=== PATIENT | male | born 1990 | race Caucasian/White ===

== ENCOUNTER 2016-11-03 11:01 | Emergency (ER) | payer OTHER ==
[2016-11-03 11:15] VITALS: TEMP 98.4
--- NOTE | 2016-11-03 11:31 | EDPHY ---
H & P Time Seen by Provider: 11/03/16 11:26 HPI/ROS: CHIEF COMPLAINT: acute left ankle pain HISTORY OF PRESENT ILLNESS: 26-year-old male with prior history of left ankle sprain states that yesterday evening he was carrying a friend and rolled his left ankle. He is unable to bear weight secondary to pain. Denies paresthesia. Denies direct trauma. Denies fall from height. Denies proximal tibia or fibula pain. PHYSICAL EXAM (Prior to examination, patient consented to physical exam, hands were washed and my usual and customary physical exam procedures followed) 1) GENERAL: Well-developed, well-nourished, alert and oriented. Appears to be in no acute distress. 2) HEAD: Normocephalic 3) HEENT: Pupils equal, round, reactive to light bilaterally. 4) LUNGS: Breathing comfortably. 5) MUSCULOSKELETAL: Tender to palpation lateral malleolus. proximal tibia and fibula nontender . Fibular head nontender. 5th MT nontender negative Molina test, compartments soft 6) SKIN: intact no tenting 7) VASCULAR: DP,PT pulses and cap refill present and brisk DIFFERENTIAL DIAGNOSIS: in no particular order including but not limited to fracture, sprain, compartment syndrome Procedure: Crutches indications for crutch use discussed with patient. Patient fitted for crutches by ER staff. Observed ambulating with crutches. I think the patient has the capacity to safely use crutches. Usual and customary crutch walking precautions provided Procedure: Splint A [place] boot splint was applied by ER dental technician apprentice. After application of the splint I returned and re-examined the patient. The splint was adequately immobilizing the joint and distal to the splint the patient's circulation and sensation were intact. Patient shows no signs of compartment syndrome. Was given orthopedic precautions. Smoking Status: Current every day smoker Constitutional: Initial Vital Signs Temperature (C) 36.9 C 11/03/16 11:12 Heart Rate 69 11/03/16 11:12 Respiratory Rate 18 11/03/16 11:12 Blood Pressure 117/83 H 11/03/16 11:12 O2 Sat (%) 96 11/03/16 11:12 O2 Delivery Mode Room Air Allergies/Adverse Reactions: No Known Allergies Allergy (Verified 11/03/16 11:11) Home Medications: Medication Instructions Recorded Ibuprofen [Motrin (*)] 800 mg PO Q6 #15 tab 11/03/16 MDM/Departure - [facility] Imaging Results: Imaging Impressions Ankle X-Ray 11/03/16 11:20 Impression: No evidence of acute left ankle fracture. Images reviewed by myself Imaging: I viewed and interpreted images myself - Depart Disposition: Home, Routine, Self-Care Clinical Impression: Left ankle sprain Qualifiers: Encounter type: initial encounter Involved ligament of ankle: unspecified ligament Qualified Code(s): S93.402A - Sprain of unspecified ligament of left ankle, initial encounter Condition: Good Instructions: Ankle Sprain (ED) Additional Instructions: Return to the ER immediately if you experience discoloration, have worsening pain, numbness, tingling, or any other symptoms that concern you. If you received x-rays in the emergency department today, be advised, that ligamentous , tendon, muscular, and other non-bony injury cannot be fully ruled out. Try to keep your affected extremity elevated above the level of your chest, and keep cold packs on the affected area, for the next 48 hours. Prescriptions: Ibuprofen [Motrin (*)] 800 mg PO Q6 #15 tab Referrals: Catina López MD [Medical Doctor] - 5-7 days, call for appt.
[2016-11-03] MEDS ORDERED: IBUPROFEN 600 MG TAB PO ONE (11:58)
[2016-11-03 12:05] VITALS: BP 117/76; PULSE 80; RESP 14; O2SAT 94
== END 2016-11-03 12:06 | disposition home or self-care (01) ==
DX: S93.402A Sprain of unspecified ligament of left ankle, initial encounter (principal); F17.200 Nicotine dependence, unspecified, uncomplicated; X58.XXXA Exposure to other specified factors, initial encounter
CPT/HCPCS: L4386

== ENCOUNTER 2017-09-23 15:15 | Emergency (ER) | payer OTHER ==
--- NOTE | 2017-09-23 16:08 | EDPHY ---
H & P Time Seen by Provider: 09/23/17 15:54 HPI/ROS: CHIEF COMPLAINT: Dog bite right buttock HISTORY OF PRESENT ILLNESS: 26-year-old male with up-to-date tetanus was plan possible in [facility] when individuals domestic dog bit him on the right buttock. Not reported law enforcement. The dog's vaccines are up-to-date, self -reported by optometrist president/practice owner. No gait instability. No paresthesia. No underlying osseous discomfort. Full weight-bearing. No genitalia or perineal injury. PHYSICAL EXAM (Prior to examination, patient consented to physical exam, hands were washed and my usual and customary physical exam procedures followed) 1) GENERAL: Well-developed, well-nourished, alert and oriented. Appears to be in no acute distress. 2) HEAD: Normocephalic 3) HEENT: sclera anicteric 4) LUNGS: Breathing comfortably. 5) SKIN: The patient's right buttock he has a single puncture wound 2 mm in diameter with no signs of infection, no discharge, appears to be superficial. No signs of infection or cellulitis. Smoking Status: Former smoker Constitutional: Initial Vital Signs Temperature (C) 36.5 C 09/23/17 15:18 Heart Rate 82 09/23/17 15:18 Respiratory Rate 16 09/23/17 15:18 Blood Pressure 125/70 H 09/23/17 15:18 O2 Sat (%) 96 09/23/17 15:18 O2 Delivery Mode Room Air Allergies/Adverse Reactions: No Known Allergies Allergy (Verified 09/23/17 15:18) Home Medications: Medication Instructions Recorded Ibuprofen [Motrin (*)] 800 mg PO Q6 #15 tab 11/03/16 Amoxicillin/Clavulanate Pot 875 mg PO BID #14 tab 09/23/17 [Augmentin 875 mg tab] MDM/Departure - MDM ED Course/Re-evaluation: Started on prophylactic antibiotics Augmentin, wound cleansed, law enforcement advised. No rabies post exposure prophylaxis. Usual customary wound precautions instructions provided. Care of patient under supervision of secondary supervising physician Dr Jerome . - Depart Disposition: Home, Routine, Self-Care Clinical Impression: Dog bite of right buttock Qualifiers: Encounter type: initial encounter Qualified Code(s): S31.815A - Open bite of right buttock, initial encounter; W54.0XXA - Bitten by dog, initial encounter; W54.0XXA - Bitten by dog, initial encounter Condition: Good Instructions: Animal Bite (ED) Additional Instructions: Return to the ER if you develop redness, swelling, discharge, warmth to the wound, red streaks going up your leg, or any other symptoms that concern you. Prescriptions: Amoxicillin/Clavulanate Pot [Augmentin 875 mg tab] 875 mg PO BID #14 tab Referrals: JENNYFER Davis. [Clinic] - 2-3 days, call for appt.
[2017-09-23 16:35] VITALS: BP 115/62
== END 2017-09-23 16:34 | disposition home or self-care (01) ==
DX: S31.815A Open bite of right buttock, initial encounter (principal); Z87.891 Personal history of nicotine dependence; W54.0XXA Bitten by dog, initial encounter; Y99.8 Other external cause status